=== PATIENT | male | born 1965 | race Hispanic/Latino ===

== ENCOUNTER 2020-08-21 14:54 | Emergency (ER) | payer OTHER, SELFPAY ==
[~2020-08-21 14:54] MED LIST: Iopamidol-370 76% 500 ML 1 ML ONE
[2020-08-21] MEDS ORDERED: Fentanyl 100 MCG/2 ML VIAL ONE (15:00)
== END 2020-08-21 16:52 | disposition home or self-care (01) ==
LOC: ERS 14:54
DX: M54.6 Pain in thoracic spine (principal); R04.0 Epistaxis; V63.5XXA Driver of heavy transport vehicle injured in collision with car, pick-up truck or van in traffic accident, initial encounter
CPT/HCPCS: 70450; 70486; 71260; 72125; 74177; 96374; G0390; J3010; Q9967